=== PATIENT | female | born 1935 | race Caucasian/White ===

== ENCOUNTER 2018-11-06 19:34 | Inpatient (IN) | payer BC, MEDICARE ==
[~2018-11-06] VITALS: Ht 157.5 cm; Wt 74.9 kg
[~2018-11-06 19:34] MED LIST: ASC500 PO; ASPI-781 PO; CHOL400T10 PO; FOLI-49 PO; METF-849 PO; MULT-552 PO; PRAV20TA2 PO; TEMA15CA PO
[2018-11-06] MEDS ORDERED: SOD CHLORIDE 0.9% 1,000 ML IV STA (19:47)
[2018-11-06] MEDS ORDERED: ONDANSETRON 4 MG INJ IV STA (20:11)
[2018-11-06] MEDS ORDERED: LORAZEPAM 2 MG INJ IV ONE (20:30)
--- NOTE | 2018-11-06 21:10 | ERD ---
ER Documentation Chief Complaint Chief Complaint FEMI RA90 from home, syncope,dizziness,NV HPI 82-year-old woman brought in by EMS from home after syncopal episode, she landed on the bed and there was no head or neck injury. Patient was dizzy and had multiple episodes of nausea and vomiting for most of the day. She states just prior to the syncopal episode besides vomiting she also had diarrhea and then fainted in her room. She has had no chest pain or shortness of breath, no headache or blurry vision. The episode was witnessed and there was no seizure activity ROS All systems reviewed and are negative except as per history of present illness. Medications Home Meds Active Scripts Aspirin* (Ecotrin*) 325 Mg Tabec, 325 MG PO BID for 45 Days Prov:ESTHERMATTHEW 08/14/15 Reported Medications Multivitamins* (Once Daily*) 1 Tab Tablet, 1 TAB PO DAILY, TAB 08/13/15 Ascorbic Acid (Vitamin C) 500 Mg Tab, 500 MG PO DAILY, TAB 08/13/15 Cholecalciferol* (Vitamin D*) 400 Unit Tablet, 1000 UNIT PO DAILY, TAB 08/13/15 Folic Acid* (Folic Acid*) 1 Mg Tablet, 1 MG PO DAILY, TAB 08/13/15 Temazepam* (Temazepam*) 15 Mg Capsule, 15 MG PO HS PRN for INSOMNIA, CAP 08/13/15 Pravastatin Sodium (Pravastatin Sodium) 20 Mg Tablet, 20 MG PO HS, TAB 08/13/15 Metformin* (Glucophage*) 500 Mg Tab, 500 MG PO BID, TAB 10/23/14 Allergies Allergies: Coded Allergies: No Known Drug Allergies (Verified Allergy, Unknown, 10/23/14) PMhx/Soc History of Surgery: Yes (see EMR) Anesthesia Reaction: No Hx Neurological Disorder: No Hx Respiratory Disorders: No Hx Cardiac Disorders: No Hx Psychiatric Problems: No Hx Miscellaneous Medical Probl: Yes (see EMR) Hx Substance Use: No Hx Tobacco Use: No Smoking Status: Never smoker FmHx Family History: No diabetes Physical Exam Vitals Vital Signs Date Temp Pulse Resp B/P (MAP) Pulse Ox O2 O2 Flow FiO2 Time Delivery Rate 11/06/18 78 17 137/70 94 Nasal 3.0 22:00 (92) Cannula 11/06/18 76 18 144/77 83 Room Air 21:30 (99) 11/06/18 63 18 141/124 99 Room Air 21:00 (130) 11/06/18 58 18 133/95 100 Room Air 20:30 (108) 11/06/18 65 18 134/80 100 Room Air 20:00 (98) 11/06/18 97.7 60 18 150/85 100 19:43 (106) Physical Exam GENERAL: Well-developed, well-nourished, nauseous, afebrile HEENT: Dry mucous membranes, pink conjunctiva, no cervical spine tenderness or step-off deformities, no goiter, no jaundice or icterus, extraocular movements intact without pain. NEURO: Alert and oriented 3, no vertigo or rotary nystagmus noted, no obvious gait ataxia, cranial nerves II through XII intact bilaterally, pupils equal round reactive to light, no focal deficits or facial asymmetry CARDIAC: Regular rate and rhythm, no murmurs rubs or gallops LUNGS: Clear bilaterally no wheezing crackles or stridor ABDOMEN: Soft nontender, no guarding, no rigidity, no rebound, no psoas sign no obturator sign. SKIN: Warm and dry to touch, no abrasions, contusions, or hematomas, no lacerations, no ecchymosis, no target lesions, and without ulcers EXTREMITIES: No clubbing cyanosis or edema, calves are bilaterally symmetrical, no Homans sign, no popliteal cord sign. Distal pulses equal and bilateral PSYCH: Normal affect without agitation or irritability Result Diagram: 11/06/18195711/06/181957 Results 24 hrs Laboratory Tests Test 11/06/18 19:58 11/06/18 22:14 White Blood Count 6.8 10^3/ul Red Blood Count 4.41 10^6/ul Hemoglobin 13.0 g/dl Hematocrit 38.8 % Mean Corpuscular Volume 88.0 fl Mean Corpuscular Hemoglobin 29.5 pg Mean Corpuscular Hemoglobin Concent 33.5 g/dl Red Cell Distribution Width 13.0 % Platelet Count 224 10^3/UL Mean Platelet Volume 10.6 fl Immature Granulocytes % 0.400 % Neutrophils % 65.5 % Lymphocytes % 22.8 % Monocytes % 7.8 % Eosinophils % 2.5 % Basophils % 1.0 % Nucleated Red Blood Cells % 0.0 /100WBC Immature Granulocytes # 0.030 10^3/ul Neutrophils # 4.5 10^3/ul Lymphocytes # 1.6 10^3/ul Monocytes # 0.5 10^3/ul Eosinophils # 0.2 10^3/ul Basophils # 0.1 10^3/ul Nucleated Red Blood Cells # 0.0 10^3/ul Sodium Level 141 mmol/L Potassium Level 4.4 mmol/L Chloride Level 103 mmol/L Carbon Dioxide Level 22 mmol/L Anion Gap 16 Blood Urea Nitrogen 32 mg/dl Creatinine 1.32 mg/dl Est Glomerular Filtrat Rate mL/min mL/min Glucose Level 216 mg/dl Calcium Level 10.3 mg/dl Total Bilirubin 0.2 mg/dl Direct Bilirubin 0.00 mg/dl Indirect Bilirubin 0.2 mg/dl Aspartate Amino Transf (AST/SGOT) 32 IU/L Alanine Aminotransferase (ALT/SGPT) 28 IU/L Alkaline Phosphatase 147 IU/L Troponin I < 0.012 ng/ml Total Protein 7.1 g/dl Albumin 4.2 g/dl Globulin 2.90 g/dl Albumin/Globulin Ratio 1.44 Lipase 299 U/L Urine Color YELLOW Urine Clarity CLEAR Urine pH 5.0 Urine Specific [place] 1.015 Urine Ketones 2+ mg/dL Urine Nitrite NEGATIVE mg/dL Urine Bilirubin NEGATIVE mg/dL Urine Urobilinogen NEGATIVE mg/dL Urine Leukocyte Esterase NEGATIVE Barbara/ul Urine Microscopic RBC 1 /HPF Urine Microscopic WBC 0 /HPF Urine Hemoglobin NEGATIVE mg/dL Urine Glucose NEGATIVE mg/dL Urine Total Protein 1+ mg/dl Current Medications Medications Dose Sig/Noam Start Time Status Last (Trade) Ordered Route PRN Stop Time Admin Dose Reason Admin Sodium 1,000 ml @ Q1H STAT 11/06/18 DC 11/06/18 Chloride 1,000 mls/hr IV 19:47 20:01 11/06/18 20:46 Ondansetron 4 mg ONCE STAT 11/06/18 DC 11/06/18 HCl (Zofran IV 20:11 20:19 Inj) 11/06/18 20:12 Lorazepam 1 mg ONCE ONCE 11/06/18 DC 11/06/18 (Ativan) IV 20:30 20:33 11/06/18 20:31 Aspirin 325 mg BID PO 11/07/18 (Ecotrin) 09:00 Meclizine 12.5 mg Q6 PRN PO 11/06/18 HCl dizziness 23:00 (Antivert) Potassium 1,000 ml @ Q10H IV 11/06/18 Chloride/Dext 100 mls/hr 23:00 karen/ Sod Cl Zolpidem 5 mg HS 11/06/18 Tartrate REPEAT X 1 23:00 (Ambien) PRN PO INSOMNIA Procedures/MDM IV line was established patient was placed on cardiac catheterization technologist rhythm strip revealed a sinus rhythm at about 70 bpm with upright P and T waves. Patient was afebrile Chest X-ray 1V Interpreted by me: Soft Tissue: No acute abnormalities Bones: No acute abnormalities Mediastinum/Cardiac Silhouette/Lungs: No acute abnormalities CT scan of the brain was performed is negative for acute bleed mass or shift. EKG performed, read by me revealed a normal sinus rhythm at 68 bpm, normal axis, narrow QRS complex, no concerning ST elevations or depressions noted I administered 2 L normal saline IV for dehydration, Zofran 4 mg IV, and later lorazepam 0.5 mg IV x1 for continued nausea and vomiting CBC was unremarkable, electrolytes revealed dehydration with a BUN/creatinine of 32/1.3, liver function tests normal, troponin negative, urine analysis was negative for infection. Patient has continued nausea and vomiting and presented with signs and symptoms consistent with vertigo, she has no signs concerning for central neurologic etiology at this time although she may be reevaluated by neurology team after admission. She will be admitted to telemetry setting for continued medical management and hydration Departure Diagnosis: Primary Impression: Syncope Syncope type: unspecified Qualified Codes: R55 - Syncope and collapse Additional Impressions: Dehydration Vertigo Intractable vomiting Vomiting type: unspecified Nausea presence: with nausea Qualified Codes: R11.2 - Nausea with vomiting, unspecified Condition: JAGDISH Jones MD Nov 06, 2018 21:10
[2018-11-06] MEDS ORDERED: MECLIZINE 12.5 MG TAB PO PRN (23:00)
[2018-11-06 23:53] VITALS: PULSE 80
[2018-11-07] VITALS (13 sets, daily range): BP systolic 135–184; BP diastolic 68–79; PULSE 18–82; RESP 16–18; Ht 157.5 cm; Wt 74.9 kg
[2018-11-07] MEDS: D5W-0.45 NACL + KCL 20 MEQ 1,000 ML IV SCH ×3 (00:32→18:03)
[2018-11-07] MEDS ORDERED: GLUCAGON 1 MG INJ IM PRN (09:00)
[2018-11-07] MEDS ORDERED: DEXTROSE 50% 50 ML SYRINGE IV PRN ×2 (09:00)
[2018-11-07] MEDS ORDERED: GLUCOSE GEL 15 GRAM TUBE PO PRN ×2 (09:00)
[2018-11-07] MEDS ORDERED: GLUCOSE GEL 15 GRAM TUBE BUCCAL PRN (09:00)
[2018-11-07] MEDS: ASPIRIN (EC) 325 MG TAB PO SCH ×2 (09:52→20:54)
[2018-11-07] MEDS: LOSARTAN 50 MG TAB PO SCH (09:52)
[2018-11-07] MEDS: metFORMIN 500 MG TAB PO SCH ×2 (09:52→18:01)
[2018-11-07] MEDS: INSULIN ASPART [NOVOLOG] 3 ML PEN SC SCH ×3 (11:57→20:43)
--- NOTE | 2018-11-07 13:15 | CONS ---
Assessment/Plan Assessment/Plan Hospital Course (Demo Recall) Dizziness, lightheadedness and syncope Hypertension Diabetes Dyslipidemia Chronic kidney disease -Patient with episodes of lightheadedness and dizziness with standing and then nausea and vomiting. After the second episode, patient with transient loss of consciousness while sitting up on the bed. -ECG with no significant ischemic abnormalities, initial cardiac enzymes were negative. Telemetry reviewed with sinus rhythm with no significant arrhythmias. Heart rate has been on the lower side but sinus. She was recently started on beta-jayson. I would DC at the current time. -We will check echocardiogram, continue telemetry monitoring, carotid ultrasound results are pending. Patient also plan for further neurologic workup. Consultation Date/Type/Reason Admit Date/Time Nov 06, 2018 at 21:37 Type of Consult Cardiology Reason for Consultation Syncope Date/Time of Note DATE: 11/07/18 TIME: 13:09 Hx of Present Illness This is an 82-year-old female with past medical history of hypertension, diabetes, dyslipidemia who presents with a syncopal episode. As per the patient and son at bedside, patient was in her normal state of health yesterday morning. She went out for lunch and then asked me 2 hours later at 3:00, she was getting up to go to the bathroom. As she stood up and walked to the bathroom, she felt dizzy and lightheaded. When she got to the bathroom, she was severely nauseous and vomited multiple times. After some time, she felt better and came back outside. Her son was present and had her sit in the bed. Once again she had an episode of dizziness and lightheadedness when she was sitting up. She was nauseous and vomiting. And there was an episode of loss of consciousness for approximately 10 seconds. Patient fell backwards on the bed. As per the son, patient came to after approximately 10 seconds. At that time, patient was br ought to the emergency room for evaluation and care. Patient does have a history of feeling lightheaded at times with standing up. She did have a near syncopal episode approximately 2 years ago in the setting of a social event with warm weather and some mild alcohol use. Otherwise she feels back to her baseline with no further episodes of dizziness, lightheadedness. She denies any abdominal pain, diarrhea. 12 point review of systems was performed with all pertinent positives and negatives mentioned above and all else is negative Past Medical History Medical History: diabetes, high cholesterol, hypertension Home Meds Active Scripts Aspirin* (Ecotrin*) 325 Mg Tabec, 325 MG PO BID for 45 Days Prov:MATTHEW SANTANA 08/14/15 Reported Medications Multivitamins* (Once Daily*) 1 Tab Tablet, 1 TAB PO DAILY, TAB 08/13/15 Ascorbic Acid (Vitamin C) 500 Mg Tab, 500 MG PO DAILY, TAB 08/13/15 Cholecalciferol* (Vitamin D*) 400 Unit Tablet, 1000 UNIT PO DAILY, TAB 08/13/15 Folic Acid* (Folic Acid*) 1 Mg Tablet, 1 MG PO DAILY, TAB 08/13/15 Temazepam* (Temazepam*) 15 Mg Capsule, 15 MG PO HS PRN for INSOMNIA, CAP 08/13/15 Pravastatin Sodium (Pravastatin Sodium) 20 Mg Tablet, 20 MG PO HS, TAB 08/13/15 Metformin* (Glucophage*) 500 Mg Tab, 500 MG PO BID, TAB 10/23/14 Medications Current Medications Aspirin (Ecotrin) 325 mg BID PO Last administered on 11/07/18at 09:52; Admin Dose 325 MG; Start 11/07/18 at 09:00 Meclizine HCl (Antivert) 12.5 mg Q6 PRN PO dizziness; Start 11/06/18 at 23:00 Potassium Chloride/Dextrose/ Sod Cl 1,000 ml @ 100 mls/hr Q10H IV Last administered on 11/07/18at 09:53; Admin Dose 100 MLS/HR; Start 11/06/18 at 23:00 Zolpidem Tartrate (Ambien) 5 mg HS MAY REPEAT X 1 PRN PO INSOMNIA; Start 11/06/18 at 23:00 Metformin HCl (Glucophage) 500 mg BID WITH MEALS PO Last administered on 11/07/18at 09:52; Admin Dose 500 MG; Start 11/07/18 at 09:00 Atorvastatin Calcium (Lipitor) 10 mg DAILY@21 PO ; Start 11/07/18 at 21:00 Insulin Aspart (Novolog Insulin Pen) NOVOLOG *MILD* ALGORITHM WITH MEALS BEDTIME SC ; Start 11/07/18 at 12:00 Losartan Potassium (Cozaar) 50 mg DAILY PO Last administered on 11/07/18at 09:52; Admin Dose 50 MG; Start 11/07/18 at 09:00 Metoprolol Succinate (Toprol Xl) 25 mg HS PO ; Start 11/07/18 at 21:00 Miscellaneous Information 1 ea NOTE XX ; Start 11/07/18 at 09:00 Glucose (Glutose) 15 gm Q15M PRN PO DECREASED GLUCOSE; Start 11/07/18 at 09:00 Glucose (Glutose) 22.5 gm Q15M PRN PO DECREASED GLUCOSE; Start 11/07/18 at 09:00 Dextrose (D50w Syringe) 25 ml Q15M PRN IV DECREASED GLUCOSE; Start 11/07/18 at 09:00 Dextrose (D50w Syringe) 50 ml Q15M PRN IV DECREASED GLUCOSE; Start 11/07/18 at 09:00 Glucagon (Glucagen) 1 mg Q15M PRN IM DECREASED GLUCOSE; Start 11/07/18 at 09:00 Glucose (Glutose) 15 gm Q15M PRN BUCCAL DECREASED GLUCOSE; Start 11/07/18 at 09:00 Allergies: Coded Allergies: No Known Drug Allergies (Verified Allergy, Unknown, 10/23/14) Past Surgical History Past Surgical Hx: other (Multiple orthopedic surgeries including shoulder, hip and knee) Family History Significant Family History: no pertinent family hx Social History Alcohol Use: rarely Smoking Status: Never smoker Exam/Review of Systems Vital Signs Vitals Vital Signs Date Temp Pulse Resp B/P (MAP) Pulse Ox O2 O2 Flow FiO2 Time Delivery Rate 11/07/18 98.0 67 18 135/69 98 12:02 (91) 11/07/18 Nasal 2.0 07:41 Cannula Intake and Output 11/06/18 11/06/18 11/07/18 1515:00 23:00 07:00 IntakeIntake Total 550 ml OutputOutput Total 250 ml 0 ml BalanceBalance -250 ml 550 ml Exam Constitutional: alert, oriented (No apparent distress, able to give history, multiple family members at bedside) Head: normocephalic Neck: other (No carotid bruit heard) Respiratory: clear to auscultation, normal air movement Cardiovascular: regular rate and rhythm (S1-S2 heard) Gastrointestinal: soft, non-tender, bowel sounds Extremities: other (No significant edema) Neurological: other (No focal deficits seen) Labs Result Diagram: 11/07/18 0506 11/07/18 0507 Results 24hrs Laboratory Tests Test 11/06/18 19:58 11/06/18 22:14 11/07/18 05:06 11/07/18 05:07 White Blood Count 6.8 6.2 Red Blood Count 4.41 # 3.98 L Hemoglobin 13.0 # 11.7 L Hematocrit 38.8 # 36.0 L Mean Corpuscular 88.0 90.5 Volume Mean Corpuscular 29.5 29.4 Hemoglobin Mean Corpuscular 33.5 32.5 Hemoglobin Concent Red Cell 13.0 13.1 Distribution Width Platelet Count 224 175 # Mean Platelet Volume 10.6 H 10.7 H Immature 0.400 0.300 Granulocytes % Neutrophils % 65.5 69.7 Lymphocytes % 22.8 19.5 Monocytes % 7.8 9.7 Eosinophils % 2.5 0.2 Basophils % 1.0 0.6 Nucleated Red Blood 0.0 0.0 Cells % Immature 0.030 0.020 Granulocytes # Neutrophils # 4.5 4.3 Lymphocytes # 1.6 1.2 Monocytes # 0.5 0.6 Eosinophils # 0.2 0.0 Basophils # 0.1 0.0 Nucleated Red Blood 0.0 0.0 Cells # Sodium Level 141 140 Potassium Level 4.4 4.4 Chloride Level 103 110 Carbon Dioxide Level 22 25 Anion Gap 16 H 5 # Blood Urea Nitrogen 32 H 29 H Creatinine 1.32 H 1.29 H Est Glomerular Filtrat Rate mL/min Glucose Level 216 175 Calcium Level 10.3 H 9.1 Total Bilirubin 0.2 0.1 L Direct Bilirubin 0.00 0.00 Indirect Bilirubin 0.2 0.1 Aspartate Amino 32 27 Transf (AST/SGOT) Alanine 28 21 Aminotransferase (AL T/SGPT) Alkaline Phosphatase 147 H 94 Troponin I < 0.012 Total Protein 7.1 5.8 #L Albumin 4.2 3.3 Globulin 2.90 2.50 Albumin/Globulin 1.44 1.32 Ratio Lipase 299 Urine Color YELLOW Urine Clarity CLEAR Urine pH 5.0 Urine Specific 1.015 [place] Urine Ketones 2+ H Urine Nitrite NEGATIVE Urine Bilirubin NEGATIVE Urine Urobilinogen NEGATIVE Urine Leukocyte NEGATIVE Esterase Urine Microscopic 1 RBC Urine Microscopic 0 WBC Urine Hemoglobin NEGATIVE Urine Glucose NEGATIVE Urine Total Protein 1+ H Test 11/07/18 11:57 Bedside Glucose 125 Imaging Imaging ECG with sinus rhythm at 68 bpm, QRS 68 ms, no significant ischemic ST abnormalities Medications Medications Current Medications Aspirin (Ecotrin) 325 mg BID PO Last administered on 11/07/18at 09:52; Admin Dose 325 MG; Start 11/07/18 at 09:00 Meclizine HCl (Antivert) 12.5 mg Q6 PRN PO dizziness; Start 11/06/18 at 23:00 Potassium Chloride/Dextrose/ Sod Cl 1,000 ml @ 100 mls/hr Q10H IV Last administered on 11/07/18at 09:53; Admin Dose 100 MLS/HR; Start 11/06/18 at 23:00 Zolpidem Tartrate (Ambien) 5 mg HS MAY REPEAT X 1 PRN PO INSOMNIA; Start 11/06/18 at 23:00 Metformin HCl (Glucophage) 500 mg BID WITH MEALS PO Last administered on 11/07/18at 09:52; Admin Dose 500 MG; Start 11/07/18 at 09:00 Atorvastatin Calcium (Lipitor) 10 mg DAILY@21 PO ; Start 11/07/18 at 21:00 Insulin Aspart (Novolog Insulin Pen) NOVOLOG *MILD* ALGORITHM WITH MEALS BEDTIME SC ; Start 11/07/18 at 12:00 Losartan Potassium (Cozaar) 50 mg DAILY PO Last administered on 11/07/18at 09:52; Admin Dose 50 MG; Start 11/07/18 at 09:00 Metoprolol Succinate (Toprol Xl) 25 mg HS PO ; Start 11/07/18 at 21:00 Miscellaneous Information 1 ea NOTE XX ; Start 11/07/18 at 09:00 Glucose (Glutose) 15 gm Q15M PRN PO DECREASED GLUCOSE; Start 11/07/18 at 09:00 Glucose (Glutose) 22.5 gm Q15M PRN PO DECREASED GLUCOSE; Start 11/07/18 at 09:00 Dextrose (D50w Syringe) 25 ml Q15M PRN IV DECREASED GLUCOSE; Start 11/07/18 at 09:00 Dextrose (D50w Syringe) 50 ml Q15M PRN IV DECREASED GLUCOSE; Start 11/07/18 at 09:00 Glucagon (Glucagen) 1 mg Q15M PRN IM DECREASED GLUCOSE; Start 11/07/18 at 09:00 Glucose (Glutose) 15 gm Q15M PRN BUCCAL DECREASED GLUCOSE; Start 11/07/18 at 09:00 Owen Perkinsb 25, 2019 13:15
--- NOTE | 2018-11-07 13:26 | RADRPT ---
Echocardiogram Report Patient Name: ANDRES LOPEZPatient ID: [id number] : 1935 (83y )Study Date: 11/07/2018 8:50:21 AM Gender: FAccession #: [id number] Tech: Nina [facility] Location: [facility] Ref.Physician: BALJIT RAMIREZ Height(Cm): BSA: Weight(Kg): Quality: AdequateAccount #: Procedures: Echocardiographic Report: Transthoracic echocardiogram with complete 2D, M-Mode, and doppler examination. Indications: Syncope. Measurements: 2D/M Mode Doppler Measurement Value Normal Range Measurement Value Normal Range LVIDd 2D 4.0 [ 3.8 - 5.2 ] cm AV Peak Salas 1.4 [ 100.0 - 170.0 ] cm/sec LVIDs 2D 2.7 [ 2.2 - 3.5 ] cm AV Peak PG 8.0 [ 2.0 - 9.0 ] mmHg LVPWd 2D 0.8 [ 0.6 - 0.9 ] cm LVOT Peak [place] 0.8 [ 70.0 - 110.0 ] cm/sec IVSd 2D 1.4 [ 0.6 - 0.9 ] cm LVOT Peak PG 3.0 [ 2.0 - 6.0 ] mmHg AoR Diam 2D 2.6 [ 2.3 - 3.1 ] cm MV E Peak [place] 0.7 [ 60.0 - 130.0 ] cm/sec EDV 2D 70.4 [ 46.0 - 106.0 ] ml MV A Peak [place] 1.1 [ 100.0 - 120.0 ] cm/sec ESV 2D 26.3 [ 14.0 - 42.0 ] ml MV E/A 0.7 [ 0.8 - 1.5 ] ratio EF 2D 62.6 [ 54.0 - 74.0 ] percent MV Decel Time 215 [ 104 - 258 ] msec LA Dimen 2D 3.6 [ 2.7 - 3.8 ] cm Lat E` Salas 0.1 [ 10.0 - 15.0 ] cm/sec Lateral E/E` 7.5 [ 1.0 - 2.0 ] ratio Med E` Salas 0.1 cm/sec MV E/A 0.7 [ 0.8 - 1.5 ] ratio TR Peak Sal[place] 2.9 [ 100.0 - 280.0 ] cm/sec TR Peak PG 34.0 mmHg RVSP 37.0 [ 10.0 - 36.0 ] mmHg Findings: Left Ventricle: Normal left ventricular systolic function. Normal left ventricular cavity size. Sigmoid septum. Ejection fraction is visually estimated at 65 %. Tissue Doppler/Mitral Doppler indices are consistent with impaired relaxation (Stage I diastolic dysfunction). Right Ventricle: Normal right ventricular size. Normal right ventricular systolic function. Left Atrium: The left atrium is normal in size. Right Atrium: The right atrium is normal in size. Mitral Valve: Mild mitral leaflet calcification. Mild mitral annular calcification. Trace mitral regurgitation. Aortic Valve: No significant aortic stenosis or insufficiency. Aortic cusps appear mildly calcified. Tricuspid Valve: Normal appearance and function of the tricuspid valve with trace physiologic regurgitation. Estimated peak PA systolic pressure 37 mmHg. Pulmonic Valve: Pulmonic valve not well visualized. Pericardium: Normal pericardium with no significant pericardial effusion. Aorta: Normal aortic root. IVC: Normal size and normal respiratory collapse consistent with normal right atrial pressure. Conclusions: Normal left ventricular systolic function. Normal left ventricular cavity size. Sigmoid septum. Ejection fraction is visually estimated at 65 %. Tissue Doppler/Mitral Doppler indices are consistent with impaired relaxation (Stage I diastolic dysfunction). Normal right ventricular size. Normal right ventricular systolic function. The left atrium is normal in size. The right atrium is normal in size. No significant valvular stenosis or regurgitation seen. Normal pericardium with no significant pericardial effusion. Electronically Signed By: Owen Perkins 2018-11-07 13:26:18 PST
--- NOTE | 2018-11-07 17:59 | HP ---
DATE OF ADMISSION: 11/06/2018 ADMITTING DIAGNOSIS: Syncope. HISTORY OF PRESENT ILLNESS: The patient is an 82-year-old female with hypertension, type 2 diabetes, hyperlipidemia, arthritis. She was brought to the emergency room by paramedics after havi ng a syncopal attack at home. The patient reports that she was in her usual state of health and went out to breakfast yesterday morning. The patient then had to go to the bathroom, but on the way to t he bathroom, the patient felt lightheaded and then had multiple episodes of nausea and vomiting. The patient was able to make it to her bedroom, but had another episode of dizziness and lightheadedness and she passed out and fell back on the bed. The patient's episode was witnessed by her son. He sa id she was out for approximately 10 seconds. There was no loss of bowel or bladder control, and the patient had no tonic-clonic activity. The patient recovered, but paramedics were called. The patien mary was brought to the emergency room for further care. REVIEW OF SYSTEMS: Otherwise unremarkable. PAST MEDICAL HISTORY: Hypertension, hyperlipidemia, type 2 diabetes, osteoarthritis. PAST SURGICAL HISTORY: Total knee replacement on the right, total hip replacement with revision, rig ht total hip replacement, bilateral carpal tunnel surgery. FAMILY HISTORY: Unremarkable. ALLERGIES: SENSITIVITY TO CODEINE. MEDICATIONS: 1. Metoprolol 25 mg extended release at bedtime. 2. Losartan 50 mg daily. 3. Pravastatin 40 mg daily. 4. Metformin 500 mg b.i.d. SOCIAL HISTORY: The patient lives with her . No tobacco. No alcohol use except on rare occa sonya. PHYSICAL EXAMINATION: VITAL SIGNS: In the emergency room, blood pressure is 150/85, oxygen saturation 100% on room air, re spirations 18, pulse 60, temperature 97.7. Currently, temperature 98.6, pulse 67, respirations 18, b lood pressure 148/68, oxygen saturation 98% on room air. GENERAL: Well-developed, well-nourished female in no acute distress, lying in bed. HEENT: EOMI, PERRLA. Oropharynx is clear. NECK: Decreased range of motion, but 2+ carotid upstroke without bruits. No lymphadenopathy, no thy romegaly. CHEST: Clear to auscultation bilaterally. HEART: Regular rate and rhythm. No ectopy. No murmurs, gallops, rubs noted. ABDOMEN: Mild obesity, nontender, normoactive bowel sounds. No hepatosplenomegaly. GENITOURINARY: Normal female externally. Internal exam not performed. EXTREMITIES: No cyanosis, clubbing or edema. NEUROLOGIC: Nonfocal. SKIN: Some actinic keratosis and mild erythema at bilateral cheeks. LABORATORY EXAMINATION: White blood cell count 6.8, hemoglobin of 13.0, hematocrit 38.8, platelets 2 24. Sodium 141, potassium 4.4, chloride 103, bicarbonate 22, BUN of 32, creatinine 1.32, blood sugar 216, calcium 10.3, AST of 32, ALT of 28, alkaline phosphatase 147, albumin of 4.2, lipase of 499. T roponin of less than 0.012. IMAGING: Brain CT shows some chronic microangiopathic white matter disease, but otherwise unremarkab le. No acute changes noted. Chest x-ray: No acute disease. ASSESSMENT AND PLAN: The patient is an 82-year-old female with hypertension, type 2 diabetes, hyperl ipidemia and arthritis who had a witnessed syncopal attack at home. The patient is being admitted to telemetry for further evaluation and care. 1. Syncope. We will continue the patient on telemetry monitoring. We will have a 2D echocardiogram done. We will do an MRI of the brain. We will do a carotid duplex scan. Cardiology will evaluate the patient to assist with further workup and treatment. We will also have neurology see the patient for further workup and treatment as well. 2. Hypertension. We will continue with medications and adjust as necessary and have cardiology eval uate the patient. 3. Diabetes. We will continue with oral medications, sliding scale and diet. 4. Hyperlipidemia. Continue with diet and medications. 5. [id number] kidney disease. We will continue to monitor and hydrate as necessary and follow her BUN and creatinine. Dictated By: BALJIT RAMIREZ MD SR/NTS Conf#: [id number] DID#: [id number] CC: POP DOMÍNGUEZ MD;*End*
[2018-11-07] MEDS ORDERED: hydrALAzine 20 MG INJ IV PRN (18:00)
[2018-11-07] MEDS: ZOLPIDEM 5 MG TAB PO PRN (20:54)
[2018-11-07] MEDS: ATORVASTATIN 10 MG TAB PO SCH (20:54)
[2018-11-07] MEDS ORDERED: METOPROLOL (XL) 25 MG TAB PO SCH (21:00)
--- NOTE | 2018-11-07 22:07 | CONS ---
DATE OF ADMISSION: 11/06/2018 DATE OF CONSULTATION: 11/07/2018 TYPE OF CONSULTATION: Neurology. Thank you for your kind referral for evaluation of vertigo and syncope. HISTORY OF PRESENT ILLNESS: The patient is an 82-year-old lady who yesterday in the day of admission developed suddenly severe vertigo with nausea, which lasted for a few hours and resolved when she ca me to the hospital. On the height of her vertigo, she had short-lasting episode of fainting. Cardio logy service is on case. She denied any weakness or numbness anywhere in the body. No headache and no double vision. No hearing problems or tinnitus. She does have history of intermittent mild light headedness and vertigo as well as a history of current seasickness. She stated that usually her vert igo is a very mild and transient. She does have oxygen transients. There is an episode of syncope a bout 2 years prior. PAST MEDICAL HISTORY: Also includes diabetes, dyslipidemia, and hypertension. SOCIAL HISTORY: No alcohol. No tobacco or drug use. FAMILY HISTORY: Noncontributory. REVIEW OF SYSTEMS: All pertinent positives include the above history of present illness. Currently, the patient has no complaints. CURRENT MEDICATIONS: 1. Lipitor 10. 2. Hydralazine p.r.n. 3. Insulin. 4. Ecotrin 325. 5. Metformin. 6. Losartan. 7. Meclizine 12.5 q.6h. PHYSICAL EXAMINATION: VITAL SIGNS: On examination, 98.3 temperature, 67 pulse, 18 respirations, and 165/73 blood pressure. GENERAL: Not in acute distress, lying in bed. HEENT: Normocephalic, atraumatic head. NECK: No carotid bruits. No thyromegaly. LUNGS: Clear to auscultation bilaterally. CARDIAC: Normal cardiac rhythm and sounds. ABDOMEN: Soft, nontender. EXTREMITIES: No cyanosis, clubbing, or edema. NEUROLOGIC: She is awake, alert, and oriented x3 with fluent speech. Cranial nerve examination show s intact visual [place] bilaterally. Pupils reactive from 3 to 2 mm bilaterally. Extraocular movemen ts intact without nystagmus. Symmetrical face. Preserved facial strength and sensation. Tongue is in midline. Palate elevates symmetrically. Motor strength examination preserved in all extremities. Normal bulk, tone, and strength. Sensory examination grossly intact to light touch. Deep tendon r eflexes 2+ upper extremities and 1+ knee jerks, absent ankle jerks. Equivocal response to plantar st imulation bilaterally. Coordination preserved on flglfm-sl-huadai testing. No dysmetria or tremor. Gait was not assessed. She denied any gait abnormality today with walking to the bathroom. IMPRESSION: Transient vertigo, isolated vertigo. Essentially only associated with nausea and vomiti ng. Seems to be peripheral likely benign paroxysmal positional vertigo related. Given the risk fact ors for stroke, I think it is reasonable to continue aspirin and statin. Keep patient normotensive a nd euglycemic. MRI of the brain was done according to the patient. I do not see results in the syst em so far. Carotid ultrasound moderate plaquing but no hemodynamically significant lesions. Atrophy and white matter disease seen on the CAT scan. Her labs are essentially normal CBC. BUN on admissi on 32 and creatinine 1.32. Today is 29 BUN and creatinine 1.29. Rest within normal limits on compre hensive metabolic panel. Syncope is likely vasovagal secondary to severe vertigo. Her renal impairment could contribute. The patient's symptoms have resolved. We will follow results of the MRI. Thank you very much for this interesting consultation. Continue meclizine on as-needed basis. Dictated By: GIULIA REESE/YUE Conf#: [id number] DID#: [id number]
[2018-11-08] VITALS (12 sets, daily range): BP systolic 160–189; BP diastolic 76–84; PULSE 53–90; RESP 18–20
[2018-11-08] MEDS: D5W-0.45 NACL + KCL 20 MEQ 1,000 ML IV SCH ×2 (03:52→16:00)
[2018-11-08] MEDS: INSULIN ASPART [NOVOLOG] 3 ML PEN SC SCH ×4 (07:37→21:00)
[2018-11-08] MEDS: metFORMIN 500 MG TAB PO SCH ×2 (07:38→17:13)
[2018-11-08] MEDS: ASPIRIN (EC) 325 MG TAB PO SCH ×2 (08:11→21:21)
[2018-11-08] MEDS: LOSARTAN 50 MG TAB PO SCH (08:11)
--- NOTE | 2018-11-08 08:53 | PN ---
DATE: 11/08/2018 SUBJECTIVE: The patient is feeling well, no dizziness, no shortness of breath, no chest pain. OBJECTIVE: VITAL SIGNS: Temperature 98.0, pulse 60 but as low as 53 during the night, respiratory rate 18, bloo d pressure 189/84, oxygen saturation 97% on room air. GENERAL: Well-developed, well-nourished female, in no acute distress, sitting up in bed. LUNGS: Clear to auscultation bilaterally. HEART: Regular rate and rhythm. ABDOMEN: Soft, nontender. NEUROLOGIC: Nonfocal. LABORATORY DATA: Sodium 142, potassium 4.8, chloride 111, bicarbonate 24, BUN 20, creatinine 1.31, g lucose of 137, magnesium 1.7, calcium 9.3. White blood cell count 4.6, hemoglobin 11.8, hematocrit 3 6.9, platelets of 171. IMAGING STUDIES: MRI of the brain shows no acute intracranial hemorrhage, infarction or mass. There are mild chronic small vessel ischemic changes and mild to moderate generalized cerebral volume loss . Carotid duplex scan shows no significant stenoses, but moderate plaque. ASSESSMENT AND PLAN: 1. Dizziness, improved. The patient continues to remain stable, but blood pressure is an issue. Ap preciate Dr. Perkins's and Dr. Robles's input into this case. We will continue telemetry [facility] and the patient remains stable, anticipate discharge home tomorrow. The patient likely with ve rtigo of peripheral origin. No evidence of any ischemic disease and no further imaging needed at thi s point. We will continue with stroke prevention with controlling cholesterol, blood sugar, blood pr essure and continue on aspirin. 2. Hypertension, remains labile. We will increase Losartan to 100 mg and add amlodipine in the even ing. The patient now off of the metoprolol and having some baseline bradycardia, but nothing signifi cant. Echocardiogram shows good heart function except for diastolic dysfunction. 3. Diabetes remains stable. Continue with medicines and diet and sliding scale. 4. Acute on chronic renal insufficiency, remains stable. Continue to monitor. No further intervent ion needed. 5. Hypomagnesemia. We will give 2 grams of IV magnesium today. Dictated By: BALJIT RAMIREZ MD SR/NTS Conf#: [id number] DID#: [id number] CC: POP DOMÍNGUEZ MD; BALJIT RAMIREZ MD;*[facility]*
[2018-11-08] MEDS ORDERED: MAGNESIUM SULFATE 2 GM/50 ML 50 ML IVPB ONE (09:30)
--- NOTE | 2018-11-08 16:14 | CONS ---
Assessment/Plan Assessment/Plan Hospital Course (Demo Recall) Dizziness, lightheadedness and syncope Hypertension Diabetes Dyslipidemia Chronic kidney disease Preserved ejection fraction -Telemetry reviewed with no significant arrhythmias. Maintain off beta-jayson -Patient seen by neurology with presumed diagnosis of vertigo -Blood pressure on the higher side, would adjust losartan to 50 mg p.o. twice daily given her age and risk of orthostatic hypotension -DC planning Consultation Date/Type/Reason Admit Date/Time Nov 06, 2018 at 21:37 Initial Consult Date Type of Consult Cardiology Date/Time of Note DATE: 11/08/18 TIME: 16:12 24 HR Interval Summary Free Text/Dictation Denies further dizziness, chest pain or shortness of breath. Exam/Review of Systems Vital Signs Vitals Vital Signs Date Temp Pulse Resp B/P (MAP) Pulse Ox O2 O2 Flow FiO2 Time Delivery Rate 11/08/18 73 12:48 11/08/18 98.5 20 162/81 99 12:43 (108) 11/07/18 Nasal 2.0 07:41 Cannula Intake and Output 11/07/18 11/07/18 11/08/18 1515:00 23:00 07:00 IntakeIntake Total 1500 ml 300 ml OutputOutput Total 3 ml BalanceBalance 1497 ml 300 ml Exam Constitutional: alert, oriented (No apparent distress) Respiratory: clear to auscultation, normal air movement Cardiovascular: regular rate and rhythm (S1-S2 heard) Gastrointestinal: soft, non-tender, bowel sounds Extremities: other (No significant edema) Labs Result Diagram: 11/08/1852011/08/18 0521 Results 24hrs Laboratory Tests Test 11/07/18 18:00 11/07/18 20:31 11/08/18 05:21 11/08/18 07:36 Bedside Glucose 124 150 136 White Blood Count 4.6 #L Red Blood Count 4.05 L Hemoglobin 11.8 L Hematocrit 36.9 L Mean Corpuscular 91.1 Volume Mean Corpuscular 29.1 Hemoglobin Mean Corpuscular 32.0 Hemoglobin Concent Red Cell 13.3 Distribution Width Platelet Count 171 Mean Platelet Volume 10.3 Immature 0.200 Granulocytes % Neutrophils % 39.2 Lymphocytes % 36.6 Monocytes % 13.4 H Eosinophils % 9.1 H Basophils % 1.5 Nucleated Red Blood 0.0 Cells % Immature 0.010 Granulocytes # Neutrophils # 1.8 Lymphocytes # 1.7 Monocytes # 0.6 Eosinophils # 0.4 Basophils # 0.1 Nucleated Red Blood 0.0 Cells # Sodium Level 142 Potassium Level 4.8 Chloride Level 111 H Carbon Dioxide Level 24 Anion Gap 7 Blood Urea Nitrogen 20 Creatinine 1.31 H Est Glomerular Filtrat Rate mL/min Glucose Level 137 Calcium Level 9.3 Magnesium Level 1.7 Test 11/08/18 12:23 Bedside Glucose 126 Medications Medications Current Medications Aspirin (Ecotrin) 325 mg BID PO Last administered on 11/08/18at 08:11; Admin Dose 325 MG; Start 11/07/18 at 09:00 Meclizine HCl (Antivert) 12.5 mg Q6 PRN PO dizziness; Start 11/06/18 at 23:00 Potassium Chloride/Dextrose/ Sod Cl 1,000 ml @ 100 mls/hr Q10H IV Last admin istered on 11/08/18at 16:00; Admin Dose 100 MLS/HR; Start 11/06/18 at 23:00 Zolpidem Tartrate (Ambien) 5 mg HS MAY REPEAT X 1 PRN PO INSOMNIA Last administered on 11/07/18at 20:54; Admin Dose 5 MG; Start 11/06/18 at 23:00 Metformin HCl (Glucophage) 500 mg BID WITH MEALS PO Last administered on 11/08at 07:38; Admin Dose 500 MG; Start 11/07/18 at 09:00 Atorvastatin Calcium (Lipitor) 10 mg DAILY@21 PO Last administered on 11/07/18at 20:54; Admin Dose 10 MG; Start 11/07/18 at 21:00 Insulin Aspart (Novolog Insulin Pen) NOVOLOG *MILD* ALGORITHM WITH MEALS BEDTIME SC ; Start 11/07/18 at 12:00 Miscellaneous Information 1 ea NOTE XX ; Start 11/07/18 at 09:00 Glucose (Glutose) 15 gm Q15M PRN PO DECREASED GLUCOSE; Start 11/07/18 at 09:00 Glucose (Glutose) 22.5 gm Q15M PRN PO DECREASED GLUCOSE; Start 11/07/18 at 09:00 Dextrose (D50w Syringe) 25 ml Q15M PRN IV DECREASED GLUCOSE; Start 11/07/18 at 09:00 Dextrose (D50w Syringe) 50 ml Q15M PRN IV DECREASED GLUCOSE; Start 11/07/18 at 09:00 Glucagon (Glucagen) 1 mg Q15M PRN IM DECREASED GLUCOSE; Start 11/07/18 at 09:00 Glucose (Glutose) 15 gm Q15M PRN BUCCAL DECREASED GLUCOSE; Start 11/07/18 at 09:00 Hydralazine HCl (Apresoline) 5 mg Q6H PRN IV SBP>180 OR DBP>100; Start 11/07/18 at 18:00 Losartan Potassium (Cozaar) 100 mg DAILY PO ; Start 11/09/18 at 09:00 Amlodipine Besylate (Norvasc) 5 mg HS PO ; Start 11/08/18 at 21:00 Owen Perkins DO Nov 08, 2018 16:14
[2018-11-08] MEDS ORDERED: AMLODIPINE 5 MG TAB PO SCH (21:00)
[2018-11-08] MEDS: ZOLPIDEM 5 MG TAB PO PRN (21:21)
[2018-11-08] MEDS: ATORVASTATIN 10 MG TAB PO SCH (21:21)
[2018-11-09] VITALS: PULSE 72
[2018-11-09] MEDS: D5W-0.45 NACL + KCL 20 MEQ 1,000 ML IV SCH (02:35)
[2018-11-09 03:24] VITALS: BP 159/72; PULSE 82; RESP 20
[2018-11-09 04:00] VITALS: PULSE 69
[2018-11-09 07:21] VITALS: BP 170/76; PULSE 80; RESP 19
[2018-11-09] MEDS: INSULIN ASPART [NOVOLOG] 3 ML PEN SC SCH (07:30)
[2018-11-09] MEDS: metFORMIN 500 MG TAB PO SCH (08:13)
[2018-11-09] MEDS: ASPIRIN (EC) 325 MG TAB PO SCH (08:13)
--- NOTE | 2018-11-09 08:14 | PDOCDIS ---
Discharge Instructions DIAGNOSIS Discharge Diagnosis 1.vertigo 2.syncope 3.HTN with diastolic dysfunction CONDITION [id number] Patient Condition: Meolr4f Good HOME CARE INSTRUCTIONS: Uhezg1Hd Diet Instructions: Kgeqc4w Xspyu3Th Special Diet: Rineq0g l4Bd Activity Restrictions: Eyqlm4x Slowly Increase Activity FOLLOW UP/APPOINTMENTS Follow-up Plan follow up with Dr. Smyth as scheduled BALJIT SMYTH MD- Nov 09, 2018 08:14
[2018-11-09] MEDS ORDERED: ASPI-716 PO (08:16)
[2018-11-09] MEDS ORDERED: LOSA50TA2 PO (08:16)
[2018-11-09 08:42] VITALS: PULSE 70
[2018-11-09] MEDS ORDERED: LOSARTAN 50 MG TAB PO SCH ×2 (09:00)
--- NOTE | 2018-11-09 09:28 | PN ---
DATE: 11/09/2018 SUBJECTIVE: The patient is feeling well, no dizziness, no chest pain or shortness of breath. OBJECTIVE: VITAL SIGNS: Temperature 98.2, pulse of 80, respirations 19, blood pressure 170/76, and oxygen satur ation 97% on room air. GENERAL: Well-developed, well-nourished female in no acute distress, lying in bed. LUNGS: Clear to auscultation bilaterally. HEART: Regular rate and rhythm. ABDOMEN: Soft, nontender. EXTREMITIES: No cyanosis, clubbing or edema. LABORATORY DATA: Sodium 142, potassium 4.9, chloride 113, bicarbonate 24, BUN of 24, creatinine 1.34 , glucose of 151, magnesium 2.0, hemoglobin 11.8, hematocrit 37.4, white blood cell count 4.9, platel ets 162. ASSESSMENT AND PLAN: 1. Vertigo/syncope. The patient is with no further episodes since she has been in the hospital. Th e patient likely with peripheral vertigo in conjunction with perhaps low blood pressure and heart rat e and the patient has no episodes in the hospital and workup and has not revealed any significant pro blems: 2. Hypertension/diastolic dysfunction. The patient will be discharged on Losartan 50 mg b.i.d. We will see how this regimen works and no longer take the metoprolol. We will discontinue the amlodipin e at this point as the Losartan is being increased to b.i.d. 3. Diabetes, stable. Continue with medicines and diet. 4. Hypercholesterolemia. We will continue with diet and medications. 5. Chronic kidney disease remains stable, as the patient's baseline creatinine was 1.4 in my office recently and her hemoglobin A1c was 6.6%. 6. Discharge planning. The patient is stable for discharge to home with followup on 11/25/2017 as s vanessa. We will continue with this and the patient will also check her blood pressure twice a day after discharge. Dictated By: BALJIT RAMIREZ MD SR/NTS Conf#: [id number] DID#: [id number] CC: POP DOMÍNGUEZ MD;*End*
[2018-11-09 09:32] VITALS: BP 151/79; PULSE 80
== END 2018-11-09 10:30 | disposition home or self-care (01) | DRG 312 ==
LOC: E/R 19:34 → EDBEDREQ 21:09 → 6WM 21:37 → OBSVTOIN 11-08 06:37
PROVIDERS: ADMIT Internal Medicine; ATTEND Internal Medicine
DX: R55 Syncope and collapse (principal); N17.9 Acute kidney failure, unspecified; H81.10 Benign paroxysmal vertigo, unspecified ear; I12.9 Hypertensive chronic kidney disease with stage 1 through stage 4 chronic kidney disease, or unspecified chronic kidney disease; N18.9 Chronic kidney disease, unspecified; E78.5 Hyperlipidemia, unspecified; R11.2 Nausea with vomiting, unspecified; E11.9 Type 2 diabetes mellitus without complications
CPT/HCPCS: 36415; 70450; 70551; 71045; 80048; 80053; 81001; 82962; 83690; 83735; 84484; 85025; 87086; 93005; 93306; 93880; 96374; 96375; G0378; J1815; J2060; J3475; J3480; J7030

== ENCOUNTER 2018-11-16 12:10 | Emergency (ER) | payer BC ==
[~2018-11-16] VITALS: Ht 160 cm; Wt 70.0 kg
[~2018-11-16 12:10] MED LIST changes: +ASPI-716 PO; -ASPI-781 PO; +LOSA50TA2 PO
[2018-11-16 12:15] VITALS: Ht 160 cm; Wt 70.0 kg
--- NOTE | 2018-11-16 12:37 | ERD ---
ER Documentation Chief Complaint Chief Complaint CODE GREEN. MECHANICAL FALL HIT HEAD. NO KO. ON ASA 81MG HPI This is a 82-year-old female whose is upstairs as a patient, the patient was walking to the nurses station and she said her shoe got stuck to the floor and she fell forward hitting the right supraorbital region on the floor. She did not syncopize or pass out afterwards. She does not have a headache, no neck pain no focal neurological complaints no extremity pain no chest pain or abdominal pain. The patient has a abrasion to the right supraorbital region. She also has an abrasion to her right dorsal ulna distally but she says it does not hurt to move her wrist or other ROS All systems reviewed and are negative except as per history of present illness. Medications Home Meds Active Scripts Aspirin* (Ecotrin*) 81 Mg Tablet.dr, 81 MG PO DAILY for 30 Days, #30 TAB Prov:BALJIT RAMIREZ MD- 11/09/18 Losartan Potassium* (Cozaar*) 50 Mg Tablet, 50 MG PO BID for 30 Days, #60 TAB Prov:BALJIT RAMIREZ MD- 11/09/18 Reported Medications Multivitamins* (Once Daily*) 1 Tab Tablet, 1 TAB PO DAILY, TAB 08/13/15 Ascorbic Acid (Vitamin C) 500 Mg Tab, 500 MG PO DAILY, TAB 08/13/15 Cholecalciferol* (Vitamin D*) 400 Unit Tablet, 1000 UNIT PO DAILY, TAB 08/13/15 Temazepam* (Temazepam*) 15 Mg Capsule, 15 MG PO HS PRN for INSOMNIA, CAP 08/13/15 Pravastatin Sodium (Pravastatin Sodium) 20 Mg Tablet, 20 MG PO HS, TAB 08/13/15 Metformin* (Glucophage*) 500 Mg Tab, 500 MG PO BID, TAB 10/23/14 Discontinued Reported Medications Folic Acid* (Folic Acid*) 1 Mg Tablet, 1 MG PO DAILY, TAB 08/13/15 Discontinued Scripts Aspirin* (Ecotrin*) 325 Mg Tabec, 325 MG PO BID for 45 Days Prov:MATTHEW SANTANA 08/14/15 Allergies Allergies: Coded Allergies: No Known Drug Allergies (Verified Allergy, Unknown, 11/16/18) PMhx/Soc History of Surgery: Yes (R HIP REPLACEMERNT/REVISION; R KNEE REPLACEMENT, CARPAL TUNNEL, BOTH HANDS,) Anesthesia Reaction: No Hx Neurological Disorder: No Hx Respiratory Disorders: No Hx Cardiac Disorders: Yes (HTN, HYPERLIPIDEMIA) Hx Psychiatric Problems: No Hx Miscellaneous Medical Probl: Yes (DM) Hx Alcohol Use: Yes (OCCASIONALLY.) Hx Substance Use: No Hx Tobacco Use: No FmHx Family History: No coronary disease Physical Exam Vitals Vital Signs Date Temp Pulse Resp B/P (MAP) Pulse Ox O2 O2 Flow FiO2 Time Delivery Rate 11/16/18 97.9 79 16 147/93 99 12:15 (111) Physical Exam Const: Well-developed, well-nourished Head: The right supraorbital region has a abrasion but no laceration, normocephalic Eyes: Normal Conjunctiva, PERRLA, EOMI, normal sclera, no nystagmus ENT: Normal External Ears, Nose and Mouth, moist mucus membranes. Neck: Full range of motion. No meningismus, no lymphadenopathy. Resp: Clear to auscultation bilaterally, no wheezing, rhonchi, rales Cardio: Regular rate and rhythm, no murmurs, S1 S2 present Abd: Soft, non tender x 4, non distended. Normal bowel sounds, no guarding or rebound, no pulsitile abdominal masses or bruits Skin: No petechiae or rashes, no ecchymosis , no maculopapular rash abrasion to the distal dorsal ulna no tenderness full range of motion wrist Back: No midline or flank tenderness Ext: No cyanosis, or edema, FROM x 4, normal inspection, neurovascularly intact x 4 Neur: Awake and alert, STR 5/5 x 4, sensation intact x 4, no focal findings, cerebellum intact Psych: Normal Mood and Affect Procedures/MDM Patient: ANDRES LOPEZ : 1935 Age: 82 Sex: F MR #: [id number] DOS: 11/16/18 1227 Ordering MD: OPAL LANDEROS DO Location: E/R Room/Bed: PROCEDURE: CT Brain without contrast. CLINICAL INDICATION: Trauma TECHNIQUE: CT scan of the brain was performed on a multidetector high- resolution CT scan. Axial imaging was obtained of the brain without contrast administration. Coronal and sagittal reformatted images were obtained from the axial source images. Standard CT scan of the head without contrast protocols were performed. The total exam CTDI equals 38.46 mGy and the total exam DLP equals 554.95 mGy- cm. One or more of the following dose reduction techniques were used: - Automated exposure control. - Adjustment of the mA and/or kV according to patient size. Use of iterative reconstruction technique. Dicom images are available COMPARISON: MRI brain 11/07/2018 FINDINGS: The ventricular system and peripheral CSF spaces are proportionate prominent consistent with moderate generalized cerebral volume loss. Mild periventricular deep white matter changes that is nonspecific and consistent with chronic microvascular ischemic disease. No evidence of intracranial masses hemorrhages or midline shift. The perry-white matter differentiation is unremarkable. The bones of the calvarium are intact. The visualized paranasal sinuses and mastoids are unremarkable. Atherosclerotic vascular disease of the cavernous carotid arteries. IMPRESSION: 1. Moderate generalized cerebral volume loss and mild nonspecific chronic microvascular ischemic disease. 2. No evidence of intracranial masses hemorrhages or midline shift. RPTAT:AAJJ Physician Madelyn Date Time Electronically viewed and signed by Physician Madelyn on 11/16/2018 14:27 BM/ CC: OPAL LANDEROS DO [id number] No head trauma on the CT scan we will discharge home with head precautions Departure Diagnosis: Primary Impression: Head injury Encounter type: initial encounter Qualified Codes: S09.90XA - Unspecified injury of head, initial encounter Additional Impression: Fall with no significant injury Encounter type: initial encounter Qualified Codes: W19.XXXA - Unspecified fall, initial encounter Condition: Stable OPAL LANDEROS DO Nov 16, 2018 12:37
[2018-11-16 14:54] VITALS: BP 132/61; PULSE 60; RESP 16
== END 2018-11-16 14:43 | disposition home or self-care (01) ==
LOC: E/R 12:10
DX: S00.211A Abrasion of right eyelid and periocular area, initial encounter (principal); I10 Essential (primary) hypertension; E11.9 Type 2 diabetes mellitus without complications; R51 Headache; W01.198A Fall on same level from slipping, tripping and stumbling with subsequent striking against other object, initial encounter; Y92.9 Unspecified place or not applicable; Z79.82 Long term (current) use of aspirin; Z96.641 Presence of right artificial hip joint; Z96.651 Presence of right artificial knee joint; Z79.84 Long term (current) use of oral hypoglycemic drugs
CPT/HCPCS: 70450